=== PATIENT | male | born 1965 | race Caucasian/White ===

== ENCOUNTER 2021-02-03 05:32 | Day surgery (SDC) | payer OTHER ==
[~2021-02-03] VITALS: Ht 190.5 cm; Wt 109.1 kg
--- NOTE | ~2021-02-03 | OP ---
PATIENT NAME: ARLENE SANTANA MEDICAL RECORD: [id number] :63 LOCATION:D.OPS ADMISSION DATE: SURGEON: MANINDER SMITH MD DATE OF OPERATION: 02/03/2021 PREOPERATIVE DIAGNOSIS: Symptomatic enlarging ventral hernia. POSTOPERATIVE DIAGNOSIS: Symptomatic enlarging non-incarcerated ventral hernia. PROCEDURE: Open repair of symptomatic non-incarcerated enlarging ventral hernia with Ventralight ST mesh with tags, 8 cm in diameter. SURGEON: Maninder Smith MD LAUNDRY AIDE: None. BLOOD LOSS: 50 cc. ANESTHESIA: General. COMPLICATIONS: None. I saw the patient preoperatively. We discussed options regarding herniorrhaphy including open herniorrhaphy versus laparoscopic hernia repair. I felt that the defect was small enough that we could repair it through an open technique perhaps with less discomfort and certainly through fewer incisions. The risks, possible complications, and alternatives to the procedure were explained to the patient. He elects to proceed. OPERATIVE COURSE: The patient was conveyed to the operating room electively on 02/03/2021. General anesthesia was induced by the anesthesia staff. The abdomen was sterilely prepped and draped. I was able to reduce the ventral hernia contents, which were at the umbilicus. A vertical incision was accomplished at the umbilicus. Sharp dissection was carried down to the hernia sac, which was entered sharply. Portion of the hernia sac were excised. There were no incarcerated contents. Some of the redundant skin was excised as well in order to provide for a more watertight closure at the end of the procedure. I then sharply cleaned overlying connective tissues from around the hernia defect, which I could stick my thumb in. I then excised the attenuated fascia at the hernia defect. The patient had a significant amount of preperitoneal fat. I was able to dissect this along with peritoneum off the anterior abdominal wall. I was actually able to create a little extraperitoneal pocket and I was able to close this pocket and completely reperitonealize with a pursestring 3-0 Vicryl suture. This allowed me to place this mesh in this preperitoneal pocket without actually touching the bowels. I hydrated the mesh after sizing the area. I placed the mesh through the hernia defect into the extraperitoneal compartment. I then cut the two tags. The tacks were then sutured to the surrounding fascia at the hernia defect with 0 Surgidac sutures. I then took some connective tissue and utilizing a horizontal mattress 2-0 Vicryl, I was able to close the hernia defect. The hernia mesh was in the proper orientation with the rough side toward the anterior abdominal wall fascia. The deep adipose tissue was closed with interrupted 3-0 Vicryl. The OPERATIVE REPORT [id number] ARLENE SANTANA subcutaneous adipose tissue was closed with interrupted 3-0 Vicryl. Skin was approximated with multiple interrupted 4-0 Vicryl Rapide sutures. A sterile dressing was then applied. The patient was then extubated and conveyed to post-anesthesia care unit where he was in stable condition. There is no need for him to follow up with me in the office unless he develops a complication related to this operative procedure. If he needs to see me in followup, I could see him at the [place] unit on one of my GI clinic days. TRANSINT:[id number] Voice Confirmation ID: [id number] DOCUMENT ID: [id number] cc: Dr. Calvin Sanchez [phone] MANINDER SMITH MD CC: DR. CALVIN SANCHEZ [phone] DICTATION DATE: 02/03/211915 LIVESTOCK INSPECTOR: 02/04/[address] [facility] 02/03/21 [facility] [address] [place] [address]
[2021-02-03 06:43] LABS: HEMATOCRIT 40.1 % (42.0-54.0); MCH 31.7 pg (26.0-34.0); MCHC 34.9 g/dL (31.0-37.0); MCV 90.7 fL (80.0-100.0); MEAN PLATELET VOLUME 11.4 fL (7.4-10.4); RBC 4.42 10x6/uL (4.20-6.10); RDW 13.3 % (11.5-14.5); WBC 5.1 10x3/uL (4.8-10.8)
[2021-02-03 06:49] LABS: ANION GAP 13.4 mmol/L (8-16); CALCIUM 8.8 mg/dL (8.5-10.1); CARBON DIOXIDE 25.6 mmol/L (21.0-32.0); CREATININE - SERUM 1.1 mg/dL (0.6-1.3)
[2021-02-03] MEDS ORDERED: NEURONTIN600 MG PO (06:54)
[2021-02-03] MEDS ORDERED: BACLOFEN20 M1 PO (06:54)
[2021-02-03] MEDS ORDERED: ACETAMINOPHEN500 M1 PO (06:55)
[2021-02-03] MEDS ORDERED: NOVOLIN 70/30 110 ML SC (06:55)
[2021-02-03] MEDS ORDERED: LONITEN2.5 MG PO (06:56)
[2021-02-03 07:05] VITALS: BP 151/82; Ht 190.5 cm; Wt 109.1 kg
--- NOTE | 2021-02-03 11:59 | NUR ---
1200 UP TO BR WITH MINIMAL ASSISSTANCE. VOIDS LG AMT. IV DC'D WITH CATH INTACT. REVIEWED DC INSTS. PAPERS GIVEN TO GUARDS WITH RX, GETTING DRESSED, WILL BE RELEASED IN WC WITH GUARDS.
== END 2021-02-03 12:04 ==
LOC: D.OPS 05:32
PROVIDERS: Anesthesiology; ATTEND Surgery
DX: K43.9 Ventral hernia without obstruction or gangrene (principal)